=== PATIENT | female | born 1965 | race African-American/Black ===

== ENCOUNTER 2019-12-25 13:11 | Inpatient (IN) | payer MEDICAID ==
[~2019-12-25] VITALS: Ht 175.3 cm; Wt 93.1 kg
[2019-12-25] MEDS ORDERED: SODIUM CHLORIDE 0.9% 1,000 ML IVB ONE (13:21)
[2019-12-25] MEDS ORDERED: ONDANSETRON HCL 4 MG/2 ML VIAL IV ONE (13:30)
[2019-12-25] MEDS ORDERED: ASPirin 81 mg TAB PO ONE (13:30)
[2019-12-25] MEDS ORDERED: MORPHINE SULFATE 4 MG/ML SYR/VIAL IV ONE (13:30)
[2019-12-25 13:40] LABS: Basophils # (auto) 0.1 10 ^3/uL (0-0.2); Basophils % (auto) 1.6 % (0.0-2.0); Eosinophils # (auto) 0.2 10 ^3/uL (0-0.8); Eosinophils % (auto) 3.8 % (0.0-7.0); Hematocrit 47.7 % (36.0-46.0); Hemoglobin 15.3 g/dL (12.2-16.2); Lymphocytes # (auto) 2.3 10 ^3/uL (0.4-5.4); Lymphocytes % (auto) 43.4 % (10.0-50.0); Mean Corpuscular Hemoglobin 30.9 pg (28.0-32.0); Mean Corpuscular Hgb Conc. 32.1 g/dL (32.0-36.0); Mean Corpuscular Volume 96.1 fL (80.0-100.0); Monocytes # (auto) 0.4 10 ^3/uL (0-1.3); Monocytes % (auto) 8.5 % (0.0-12.0); Neutrophils # (auto) 2.3 10 ^3/uL (1.6-8.6); Neutrophils % (auto) 42.7 % (37.0-80.0); Nucleated Red Blood Cells % 0.1 %; Platelet Count (auto) 250 10^3/uL (140-450); Red Blood Cells 4.97 10^6/uL (4.0-5.20); White Blood Cell 5.3 10^3/uL (4.4-10.8)
[2019-12-25 13:56] LABS: Albumin 3.7 g/dL (3.4-5.0); Anion Gap 10 (5-15); Blood Urea Nitrogen 11 mg/dL (7-18); Calcium 8.6 mg/dL (8.5-10.1); Carbon Dioxide 24 mmol/L (21-32); Chloride 107 mmol/L (98-107); Glucose 116 mg/dL (74-106); Magnesium 2.4 mg/dL (1.6-2.6); Potassium 4.2 mmol/L (3.5-5.1); Sodium 141 mmol/L (136-145)
[2019-12-25 14:01] LABS: Alanine Aminotransferase 49 U/L (13-56); Alkaline Phosphatase 89 U/L (45-117); Aspartate Aminotransferase 26 U/L (15-37); Bilirubin, Total 0.5 mg/dL (0.2-1.0); GFR African American 65 mL/min; GFR Non-African American 54 mL/min; Total Protein 7.7 g/dL (6.4-8.2)
[2019-12-25 14:06] LABS: BUN/Creatinine Ratio 9.9
[2019-12-25] MEDS ORDERED: DOCUSATE SOD 100 MG CAP PO PRN (14:30)
[2019-12-25] MEDS ORDERED: ONDANSETRON HCL 4 MG/2 ML VIAL IV PRN (14:30)
[2019-12-25] MEDS ORDERED: NITROGLYCERIN 0.4 MG SL TAB SL PRN ×2 (14:30→15:00)
[2019-12-25] MEDS ORDERED: MORPHINE SULF INJ 2 MG/ML SYRINGE 1ML IV PRN (14:30)
[2019-12-25] MEDS ORDERED: LORazepam 0.5 MG TAB PO PRN (14:30)
[2019-12-25] MEDS ORDERED: ALUM & MAG HYDROX-SIMETH LIQ(MAALOX) 30 ML PO PRN (14:30)
[2019-12-25] MEDS ORDERED: MORPHINE SULFATE 4 MG/ML SYR/VIAL IV PRN (14:30)
[2019-12-25] MEDS ORDERED: FAMOTIDINE 20 MG TAB PO ONE (15:00)
[2019-12-25] MEDS: SODIUM CHLORIDE 0.9% 1,000 ML IV SCH (15:01)
[2019-12-25] MEDS: HYDROcodone-ACET 5/325MG TAB PO PRN (15:27)
[2019-12-25 16:00] VITALS: BP 125/63
--- NOTE | 2019-12-25 16:00 | NUR ---
PATIENT ARRIVED IN ROOM FROM ER. PATIENT ORIENTED TO ROOM, CALL LIGHT BEDSIDE, 2X SIDE RAILS UP, BED IN LOCKED AND LOWEST POSITION. CURRENT VS 97.9, 72, 18, 100%, 125/63. PATIENT COMPLAINT OF CHEST PAIN 5/10, BUT IS REFUSING ADDITIONAL PAIN MEDICATION AT THIS TIME. PATIENT POSITIONED FOR COMFORT. WILL CONTINUE TO MONITOR Q1H AND PRN.
--- NOTE | 2019-12-25 16:49 | NUR ---
PAIN ASSESSMENT PATIENT COMPLAINT OF PAIN 5/10 IN CHEST. PATIENT DOES NOT WANT FURTHER PAIN MEDICATION AT THIS TIME. WILL CONTINUE TO MONITOR
[2019-12-25 17:00] VITALS: BP 125/63
--- NOTE | 2019-12-25 19:30 | NUR ---
Opening Shift Note Assumed care of patient, awake and alert. No S/S of distress/SOB or pain. Instructed on POC and to call for assist PRN, will continue to monitor for changes Q1hr and PRN. Chest pain to right chest and right shoulder, pressure like pain, offered pain medication refused at this time. Encouraged to call if pain medication needed. Call casey with in reach.
[2019-12-25] MEDS: FAMOTIDINE 20 MG TAB PO SCH (20:26)
[2019-12-25] MEDS: ATORVASTATIN 20 MG TAB PO SCH (20:26)
[2019-12-25] MEDS: METOPROLOL TARTRATE 25 MG TAB PO SCH (20:26)
[2019-12-25 21:00] VITALS: BP 121/80
--- NOTE | 2019-12-25 22:18 | NUR ---
Pain medication given Morphine 2mg IV for right shoulder pain of 8/10, patient said pain level down to 3/10. Encouraged patient to call if pain gets worse. Patient has 02 at 2L via IN.
[2019-12-26] MEDS: SODIUM CHLORIDE 0.9% 1,000 ML IV SCH ×2 (01:13→19:04)
--- NOTE | 2019-12-26 04:15 | NUR ---
EKG DONE, IN CHART. PATIENT DENIES CHEST PAIN AT THIS TIME.
[2019-12-26 05:00] VITALS: BP 117/83
[2019-12-26 06:09] LABS: Hematocrit 42.8 % (36.0-46.0); Mean Corpuscular Hemoglobin 31.4 pg (28.0-32.0); Mean Corpuscular Hgb Conc. 32.7 g/dL (32.0-36.0); Mean Corpuscular Volume 96.1 fL (80.0-100.0); Platelet Count (auto) 214 10^3/uL (140-450); Red Blood Cells 4.45 10^6/uL (4.0-5.20); Red Cell Distribution Width 14.8 % (11.8-14.3); White Blood Cell 4.6 10^3/uL (4.4-10.8)
[2019-12-26 06:20] LABS: Basophils % (manual) 0 (0.0-2.0); Blast Cells 0; Metamyelocytes % 0; Myelocytes % 0; Promyelocytes % 0; Reactive Lymphocytes 0
[2019-12-26 06:21] LABS: INR 1.07 (0.9-1.15); Partial Thromboplastin Time 33.3 sec (23.64-32.05)
[2019-12-26 06:45] LABS: Albumin 3.2 g/dL (3.4-5.0); BUN/Creatinine Ratio 12.6; Bilirubin, Total 0.7 mg/dL (0.2-1.0); Calcium 8.3 mg/dL (8.5-10.1); Magnesium 2.3 mg/dL (1.6-2.6); Phosphorus 3.9 mg/dL (2.5-4.90); Total Protein 6.4 g/dL (6.4-8.2)
[2019-12-26 06:59] LABS: Band Neutrophils % (manual) 1; Eosinophils % (manual) 5 (0-7); Lymphocytes % (manual) 62 (10.0-50.0); Monocytes % (manual) 8 (0-12)
[2019-12-26 08:00] VITALS: BP 116/63
[2019-12-26] MEDS: METOPROLOL TARTRATE 25 MG TAB PO SCH ×2 (09:28→22:00)
[2019-12-26] MEDS: cefTRIAXone 1GM/50ML D5W 50 ML IV SCH (09:28)
[2019-12-26] MEDS: DOCUSATE SOD 100 MG CAP PO SCH (09:28)
[2019-12-26] MEDS: ASPirin 81 mg TAB PO SCH (09:28)
[2019-12-26] MEDS: ENOXAPARIN SOD 40 MG/0.4 ML SYRINGE SC SCH (09:29)
[2019-12-26] MEDS: FAMOTIDINE 20 MG TAB PO SCH ×2 (09:29→22:00)
[2019-12-26 09:44] VITALS: BP 116/63
[2019-12-26 13:00] VITALS: BP 116/64
[2019-12-26] MEDS ORDERED: TROLAMINE SALICYLATE 10% TOP CREAM TOP ONE (14:15)
--- NOTE | 2019-12-26 14:15 | NUR ---
ASPERCREME MEDICATION NOT GIVEN. PATIENT DID NOT WANT THE MEDICATION AT THIS TIME. MEDICATION HELD FOR LATER. INFORMED NURSE
--- NOTE | 2019-12-26 14:15 | NUR ---
DR PRICE ON UNIT
[2019-12-26 16:18] LABS: Urine Bacteria NONE SEEN /hpf (None Seen); Urine Blood Negative /uL (Negative); Urine Specific Gravity 1.011 (1.001-1.035); Urine WBC 2 /hpf (0 - 5)
[2019-12-26 16:30] VITALS: BP 147/68
[2019-12-26 16:30] LABS: Amphetamine Screen, Urine NEGATIVE (NEGATIVE); Barbiturate Scree,Urine NEGATIVE (NEGATIVE); Benzodiazephine Screen, Urine NEGATIVE (NEGATIVE); Cannabinoid Screen, Urine NEGATIVE (NEGATIVE); Cocaine Screen, Urine NEGATIVE (NEGATIVE); Opiate Scree,Urine NEGATIVE (NEGATIVE); Phencyclidine Screen, Urine NEGATIVE (NEGATIVE)
--- NOTE | 2019-12-26 20:45 | NUR ---
PAIN ASSESSMENT The patient complained of 8/10 left sided that began after the patient walked around in the hallway for a few minutes. The patient denies any shortness of breath. Patient's vitals: Temp 97.9 F, BP 121/75, HR 76, RR 17, SPO2 98%. The patient was given Nitro x1. The patient complained of a headache afterwards. Patient educated on the effects of Nitro. And EKG was obtained and shown to hospitalist Rafy. EKG has been placed in chart. No new orders obtained. Patient currently has 0/10 chest pain. Will continue to monitor the patient's status.
[2019-12-26 22:00] VITALS: BP 121/75
[2019-12-26] MEDS: TROLAMINE SALICYLATE 10% TOP CREAM TOP SCH (22:00)
[2019-12-26] MEDS: ATORVASTATIN 20 MG TAB PO SCH (22:00)
[2019-12-26] MEDS: HYDROcodone-ACET 5/325MG TAB PO PRN (22:25)
[2019-12-27 05:00] VITALS: BP 104/66
--- NOTE | 2019-12-27 06:25 | NUR ---
IV ATTEMPT Attempted an IV in the patient's right arm. Upon attempt, patient immediately withdrew her arm and stated that it was too painful. Unable to place IV due to patient's anxiety about needles.
[2019-12-27 06:53] LABS: Hematocrit 42.7 % (36.0-46.0); Hemoglobin 14.2 g/dL (12.2-16.2); Mean Corpuscular Hemoglobin 31.7 pg (28.0-32.0); Mean Corpuscular Hgb Conc. 33.2 g/dL (32.0-36.0); Mean Corpuscular Volume 95.4 fL (80.0-100.0); Platelet Count (auto) 205 10^3/uL (140-450); Red Blood Cells 4.48 10^6/uL (4.0-5.20); Red Cell Distribution Width 14.7 % (11.8-14.3); White Blood Cell 4.4 10^3/uL (4.4-10.8)
[2019-12-27 06:59] LABS: Basophils % (manual) 0 (0.0-2.0); Blast Cells 0; Metamyelocytes % 0; Myelocytes % 0; Promyelocytes % 0; Reactive Lymphocytes 0
--- NOTE | 2019-12-27 07:00 | NUR ---
Opening Shift Note Received report from the patient. Awake lying in bed. Discussed the plan of care with the patient. Patient shows no signs of distress at this time. Bed in lowest position, side rails up x2, and call light is within reach. Will continue to monitor.
[2019-12-27 07:07] LABS: Anion Gap 4 (5-15); Blood Urea Nitrogen 9 mg/dL (7-18); Calcium 8.4 mg/dL (8.5-10.1); Carbon Dioxide 27 mmol/L (21-32); Chloride 110 mmol/L (98-107); Glucose 98 mg/dL (74-106); Potassium 4.1 mmol/L (3.5-5.1); Sodium 141 mmol/L (136-145)
[2019-12-27 07:09] LABS: BUN/Creatinine Ratio 10.6; GFR African American 89 mL/min; GFR Non-African American 74 mL/min
[2019-12-27 07:34] LABS: Band Neutrophils % (manual) 1; Eosinophils % (manual) 4 (0-7); Lymphocytes % (manual) 65 (10.0-50.0); Monocytes % (manual) 9 (0-12)
[2019-12-27 08:00] VITALS: BP 118/70
[2019-12-27] MEDS ORDERED: ADENOSINE 85 MG in GIVE UN-DILUTED 0 ML IV STA (08:15)
[2019-12-27] MEDS: DOCUSATE SOD 100 MG CAP PO SCH (10:00)
[2019-12-27] MEDS: ENOXAPARIN SOD 40 MG/0.4 ML SYRINGE SC SCH (10:00)
[2019-12-27] MEDS: cefTRIAXone 1GM/50ML D5W 50 ML IV SCH (10:31)
[2019-12-27 12:00] VITALS: BP 144/71
[2019-12-27] MEDS: ASPirin 81 mg TAB PO SCH (13:19)
[2019-12-27] MEDS: FAMOTIDINE 20 MG TAB PO SCH ×2 (13:20→21:38)
[2019-12-27] MEDS: METOPROLOL TARTRATE 25 MG TAB PO SCH ×2 (13:20→21:39)
[2019-12-27] MEDS: TROLAMINE SALICYLATE 10% TOP CREAM TOP SCH ×2 (13:20→21:38)
[2019-12-27 17:00] VITALS: BP 116/60
[2019-12-27] MEDS ORDERED: diphenhdrAMINE HCL 50 MG/1 ML VL IV ONE (17:00)
[2019-12-27] MEDS: SODIUM CHLORIDE 0.9% 1,000 ML IV SCH (18:51)
--- NOTE | 2019-12-27 19:25 | NUR ---
Opening Shift Note Assumed care of patient, awake and alert x4. No S/S of distress/SOB, complaints of pain 8/0-10, pain management options discussed. Call light is within reach, side rails up x2, fall precautions are in place. Instructed on POC and to call for assist PRN, will continue to monitor for changes Q1hr and PRN.
--- NOTE | 2019-12-27 19:30 | NUR ---
IV removal from [facility] IV DC'd with clean sterile technique, catheter fully intact. Pressure dressing applied to site. Patient tolerated well.
[2019-12-27] MEDS: HYDROcodone-ACET 5/325MG TAB PO PRN (19:40)
--- NOTE | 2019-12-27 19:40 | NUR ---
PAIN Patient is complaining of pain 8/0-10 to the right shoulder and chest. Morphine is available for severe pain, patient is requesting Wilmar 5 stating it works just fine for her. Wilmar 5 given as ordered for pain, will reassess.
--- NOTE | 2019-12-27 20:40 | NUR ---
PAIN REASSESSMENT Patient states pain is 0/0-10, she is comfortable and the Dodson 5 works great. Call light is within reach, instructed to call for assistance.
[2019-12-27] MEDS: ATORVASTATIN 20 MG TAB PO SCH (21:38)
[2019-12-27 22:12] VITALS: BP 140/92
[2019-12-28] MEDS ORDERED: SODIUM CHLORIDE 0.9% 1,000 ML IV SCH (00:01)
[2019-12-28 05:00] VITALS: BP 128/74
[2019-12-28 05:21] LABS: Hematocrit 43.2 % (36.0-46.0); Hemoglobin 14.2 g/dL (12.2-16.2); Mean Corpuscular Hemoglobin 31.3 pg (28.0-32.0); Mean Corpuscular Volume 95.1 fL (80.0-100.0); Platelet Count (auto) 211 10^3/uL (140-450); Red Blood Cells 4.54 10^6/uL (4.0-5.20); Red Cell Distribution Width 14.6 % (11.8-14.3); White Blood Cell 3.8 10^3/uL (4.4-10.8)
[2019-12-28 05:36] LABS: BUN/Creatinine Ratio 14.8; Calcium 8.5 mg/dL (8.5-10.1); Potassium 3.9 mmol/L (3.5-5.1)
[2019-12-28 05:42] LABS: Band Neutrophils % (manual) 0; Basophils % (manual) 0 (0.0-2.0); Blast Cells 0; Metamyelocytes % 0; Myelocytes % 0; Promyelocytes % 0
[2019-12-28 06:57] LABS: Eosinophils % (manual) 4 (0-7); Lymphocytes % (manual) 52 (10.0-50.0); Monocytes % (manual) 11 (0-12); Reactive Lymphocytes 2
--- NOTE | 2019-12-28 07:30 | NUR ---
Patient in bed, awake, oriented x4. No acute distress noted. Patient on NPO.
[2019-12-28 08:00] VITALS: BP 139/93
[2019-12-28] MEDS: cefTRIAXone 1GM/50ML D5W 50 ML IV SCH (08:00)
[2019-12-28] MEDS: SODIUM CHLORIDE 0.9% 1,000 ML IV SCH (08:04)
[2019-12-28] MEDS: FAMOTIDINE 20 MG TAB PO SCH ×2 (09:22→22:22)
[2019-12-28] MEDS: ASPirin 81 mg TAB PO SCH (09:23)
[2019-12-28] MEDS: METOPROLOL TARTRATE 25 MG TAB PO SCH ×2 (09:23→22:23)
[2019-12-28] MEDS: DOCUSATE SOD 100 MG CAP PO SCH (09:25)
[2019-12-28] MEDS: ENOXAPARIN SOD 40 MG/0.4 ML SYRINGE SC SCH (09:26)
[2019-12-28] MEDS: TROLAMINE SALICYLATE 10% TOP CREAM TOP SCH ×2 (09:27→22:22)
--- NOTE | 2019-12-28 09:30 | NUR ---
Patient said that her salesperson jewelry is her niece Ryan ([phone]).
--- NOTE | 2019-12-28 10:20 | NUR ---
Transferred patient via bed to [facility] for left heart cath. Patient awake, oriented x4, no acute distress noted. IV line intact and patent. Patient able to ambulate to the bathroom at [facility]. Patient back to bed, steady gait noted.
--- NOTE | 2019-12-28 12:00 | NUR ---
Patient still at [facility] at this time.
[2019-12-28] MEDS ORDERED: MIDAZOLAM HCL 1MG/1ML-2 ML VIAL ONE (12:09)
[2019-12-28] MEDS ORDERED: fentaNYL CITRATE 100 MCG/2 ML VL ONE (12:09)
[2019-12-28] MEDS ORDERED: VERAPAMIL 2.5MG/ML INJ 2ML VIAL IV ONE (12:15)
[2019-12-28] MEDS ORDERED: HEPARIN SODIUM (PORCINE) 5000 UNITS/ML 1ML VIAL ONE ×2 (12:24→12:27)
[2019-12-28] MEDS ORDERED: diphenhdrAMINE HCL 50 MG/1 ML VL ONE (12:29)
[2019-12-28] MEDS ORDERED: IOHEXOL 350 MG/ML 100ML IJ ONE (12:29)
[2019-12-28] MEDS ORDERED: LIDOCAINE 2%HCL (LOCAL ANESTH.) INJ 20ML MDV ONE (12:29)
--- NOTE | 2019-12-28 14:08 | NUR ---
Patient back to room, lethargic, right wrist on Vasc Band, 2 ml of air removed by Block Sorter GRACE Buckley. On O2 at 2 lpm via nasal cannula. On bed alarm.
--- NOTE | 2019-12-28 14:23 | NUR ---
About 2 ml of air removed from the Vasc Band on the right wrist.
--- NOTE | 2019-12-28 14:55 | NUR ---
About 2 ml of air removed from the Vasc Band on the right wrist. No bleeding noted. Assisted the patient to get up to go to the bathroom. Patient walked back to bed, slow but steady gait noted.
--- NOTE | 2019-12-28 15:10 | NUR ---
About 2 ml of air removed from the Vasc Band. No bleeding noted.
--- NOTE | 2019-12-28 15:25 | NUR ---
About 2 ml of air removed from the Vasc Band on right wrist. No bleeding noted.
--- NOTE | 2019-12-28 16:30 | NUR ---
Removed the Vasc Band on the right wrist. No bleeding noted. Gauze and Tegaderm dressing applied.
[2019-12-28 16:47] VITALS: BP 115/71
--- NOTE | 2019-12-28 19:35 | NUR ---
Opening Shift Note Assumed care of patient, awake and alert x4. No S/S of distress/SOB or pain. Right wrist access from left heart cath today is C/D/I, the area is soft. Instructed on POC and to call for assist PRN. Call light is within reach, side rails up x2, bed is in the lowest position, brakes are locked. Will continue to monitor for changes Q1hr and PRN.
[2019-12-28 21:55] VITALS: BP 135/75
[2019-12-28] MEDS: ATORVASTATIN 20 MG TAB PO SCH (22:23)
[2019-12-29] MEDS: SODIUM CHLORIDE 0.9% 1,000 ML IV SCH (01:48)
[2019-12-29 05:33] LABS: Basophils # (auto) 0 10 ^3/uL (0-0.2); Basophils % (auto) 1.1 % (0.0-2.0); Eosinophils # (auto) 0.2 10 ^3/uL (0-0.8); Eosinophils % (auto) 3.4 % (0.0-7.0); Hematocrit 45.5 % (36.0-46.0); Hemoglobin 15.1 g/dL (12.2-16.2); Lymphocytes # (auto) 2.3 10 ^3/uL (0.4-5.4); Lymphocytes % (auto) 50.3 % (10.0-50.0); Mean Corpuscular Hemoglobin 31.9 pg (28.0-32.0); Mean Corpuscular Hgb Conc. 33.2 g/dL (32.0-36.0); Monocytes # (auto) 0.4 10 ^3/uL (0-1.3); Monocytes % (auto) 8.4 % (0.0-12.0); Neutrophils # (auto) 1.7 10 ^3/uL (1.6-8.6); Neutrophils % (auto) 36.8 % (37.0-80.0); Nucleated Red Blood Cells % 0.1 %; Platelet Count (auto) 219 10^3/uL (140-450); Red Blood Cells 4.74 10^6/uL (4.0-5.20); Red Cell Distribution Width 14.8 % (11.8-14.3); White Blood Cell 4.6 10^3/uL (4.4-10.8)
[2019-12-29 05:48] LABS: Potassium 3.8 mmol/L (3.5-5.1)
[2019-12-29 05:51] VITALS: BP 113/75
[2019-12-29 05:52] LABS: BUN/Creatinine Ratio 14.8
[2019-12-29 08:00] VITALS: BP 125/78
--- NOTE | 2019-12-29 08:00 | NUR ---
Opening Shift Note Assumed care of patient, awake and alert x4. No S/S of distress/SOB or pain. S/P left heart cath , right wrist access clean dry and intact, soft, slightly tender to touch. No c/o pain. Instructed on POC and to call for assistance PRN. Call light is within reach, side rails up x2, bed is in the lowest position, brakes are locked. Will continue to monitor for changes Q1hr and PRN.
[2019-12-29] MEDS: FAMOTIDINE 20 MG TAB PO SCH (09:03)
[2019-12-29] MEDS: cefTRIAXone 1GM/50ML D5W 50 ML IV SCH (09:03)
[2019-12-29] MEDS: ASPirin 81 mg TAB PO SCH (09:03)
[2019-12-29] MEDS: DOCUSATE SOD 100 MG CAP PO SCH (09:04)
[2019-12-29] MEDS: ENOXAPARIN SOD 40 MG/0.4 ML SYRINGE SC SCH (09:05)
[2019-12-29 12:00] VITALS: BP 146/74
[2019-12-29 15:36] VITALS: BP 146/74
--- NOTE | 2019-12-29 17:20 | NUR ---
Discharge instructions given as ordered. Encourage to follow up with PMD as instructed. All questions and concerns addressed. Patient verbalized understanding. Medication reconciliation form completed and copy given to patient. IV removed with catheter intact, pressure dressing applied. Telemetry unit returned to ICU. Patient taken to vehicle via wheelchair with all personal belongings, accompanied by this nurse. No distress noted at time of departure.
== END 2019-12-29 17:20 | disposition home or self-care (01) | DRG 192 ==
LOC: ER 13:11 → TELE 13:12 → TELE-WESTW 15:58
PROVIDERS: ADMIT Hospitalist; ATTEND Internal Medicine
PROC: 4A023N7 Measurement of Cardiac Sampling and Pressure, Left Heart, Percutaneous Approach (ICD-10-PCS; principal; 2019-12-28)
PROC: B2111ZZ Fluoroscopy of Multiple Coronary Arteries using Low Osmolar Contrast (ICD-10-PCS; 2019-12-28)
PROC: B2151ZZ Fluoroscopy of Left Heart using Low Osmolar Contrast (ICD-10-PCS; 2019-12-28)
DX: M94.0 Chondrocostal junction syndrome [Tietze] (principal); N17.0 Acute kidney failure with tubular necrosis; I13.10 Hypertensive heart and chronic kidney disease without heart failure, with stage 1 through stage 4 chronic kidney disease, or unspecified chronic kidney disease; E66.9 Obesity, unspecified; N10 Acute pyelonephritis; N18.9 Chronic kidney disease, unspecified; J44.9 Chronic obstructive pulmonary disease, unspecified; R00.2 Palpitations; I99.8 Other disorder of circulatory system; F17.210 Nicotine dependence, cigarettes, uncomplicated; Z80.1 Family history of malignant neoplasm of trachea, bronchus and lung; Z80.3 Family history of malignant neoplasm of breast; Z82.49 Family history of ischemic heart disease and other diseases of the circulatory system; Z87.440 Personal history of urinary (tract) infections; Z83.3 Family history of diabetes mellitus; Z90.710 Acquired absence of both cervix and uterus; Z68.30 Body mass index [BMI] 30.0-30.9, adult
CPT/HCPCS: 36415; 71045; 78452; 80048; 80053; 80061; 80307; 81001; 83036; 83735; 83880; 84100; 84443; 84484; 85007; 85025; 85027; 85610; 85730; 87086; 93005; 93017; 93306; 93458; 96361; 96374; 96375; 99152; G0378; J0153; J0696; J2250; J2405

== ENCOUNTER 2020-04-25 21:23 | Emergency (ER) | payer MEDICAID ==
[~2020-04-25] VITALS: Ht 175.3 cm; Wt 99.8 kg
[2020-04-25 22:51] LABS: Basophils # (auto) 0.1 10 ^3/uL (0-0.2); Basophils % (auto) 1.2 % (0.0-2.0); Eosinophils # (auto) 0.2 10 ^3/uL (0-0.8); Eosinophils % (auto) 3.5 % (0.0-7.0); Hematocrit 48.9 % (36.0-46.0); Hemoglobin 15.9 g/dL (12.2-16.2); Lymphocytes # (auto) 3.1 10 ^3/uL (0.4-5.4); Lymphocytes % (auto) 47.7 % (10.0-50.0); Mean Corpuscular Hemoglobin 31.4 pg (28.0-32.0); Mean Corpuscular Hgb Conc. 32.6 g/dL (32.0-36.0); Mean Corpuscular Volume 96.3 fL (80.0-100.0); Monocytes # (auto) 0.6 10 ^3/uL (0-1.3); Monocytes % (auto) 9.2 % (0.0-12.0); Neutrophils # (auto) 2.5 10 ^3/uL (1.6-8.6); Neutrophils % (auto) 38.4 % (37.0-80.0); Nucleated Red Blood Cells % 0.1 %; Platelet Count (auto) 280 10^3/uL (140-450); Red Blood Cells 5.08 10^6/uL (4.0-5.20); Red Cell Distribution Width 14.9 % (11.8-14.3); White Blood Cell 6.6 10^3/uL (4.4-10.8)
[2020-04-25 22:57] LABS: Urine Bacteria FEW /hpf (None Seen); Urine Blood 3+ /uL (Negative); Urine Mucus FEW (None Seen); Urine Specific Gravity 1.023 (1.001-1.035); Urine WBC 134 /hpf (0 - 5)
[2020-04-25 23:09] LABS: Calcium 9.5 mg/dL (8.5-10.1); Potassium 3.7 mmol/L (3.5-5.1)
[2020-04-25 23:26] LABS: Albumin 4.4 g/dL (3.4-5.0); Bilirubin, Total 0.7 mg/dL (0.2-1.0); Total Protein 8.2 g/dL (6.4-8.2)
[2020-04-26 04:30] VITALS: BP 145/94
[2020-04-26] MEDS ORDERED: MORPHINE SULFATE 4 MG/ML SYR/VIAL IV ONE (05:00)
[2020-04-26] MEDS ORDERED: ONDANSETRON HCL 4 MG/2 ML VIAL IV ONE (05:00)
[2020-04-26] MEDS ORDERED: SODIUM CHLORIDE 0.9% 1,000 ML IV ONE (05:00)
== END 2020-04-26 05:10 | disposition left against medical advice (07) ==
LOC: ER 21:25
DX: R10.9 Unspecified abdominal pain (principal); Z53.21 Procedure and treatment not carried out due to patient leaving prior to being seen by health care provider
CPT/HCPCS: 36415; 74176; 80053; 81001; 85025

== ENCOUNTER 2021-03-12 22:31 | Emergency (ER) | payer MEDICAID ==
[~2021-03-12] VITALS: Ht 172.7 cm; Wt 95.3 kg
[2021-03-12 22:31] VITALS: BP 149/95
[2021-03-12 23:00] LABS: Basophils # (auto) 0.1 10 ^3/uL (0-0.2); Basophils % (auto) 1.4 % (0.0-2.0); Eosinophils # (auto) 0.2 10 ^3/uL (0-0.8); Eosinophils % (auto) 3.8 % (0.0-7.0); Hematocrit 40.9 % (36.0-46.0); Hemoglobin 13.5 g/dL (12.2-16.2); Lymphocytes # (auto) 2.7 10 ^3/uL (0.4-5.4); Lymphocytes % (auto) 48.9 % (10.0-50.0); Mean Corpuscular Hemoglobin 30.6 pg (28.0-32.0); Mean Corpuscular Hgb Conc. 33.1 g/dL (32.0-36.0); Mean Corpuscular Volume 92.6 fL (80.0-100.0); Monocytes # (auto) 0.4 10 ^3/uL (0-1.3); Monocytes % (auto) 7.5 % (0.0-12.0); Neutrophils # (auto) 2.1 10 ^3/uL (1.6-8.6); Neutrophils % (auto) 38.4 % (37.0-80.0); Nucleated Red Blood Cells % 0.1 %; Red Blood Cells 4.42 10^6/uL (4.0-5.20); Red Cell Distribution Width 14.2 % (11.8-14.3); White Blood Cell 5.5 10^3/uL (4.4-10.8)
[2021-03-12 23:17] LABS: Alanine Aminotransferase 28 U/L (13-56); Albumin 3.8 g/dL (3.4-5.0); Anion Gap 8 (5-15); Aspartate Aminotransferase 16 U/L (15-37); BUN/Creatinine Ratio 18.1; Blood Urea Nitrogen 17 mg/dL (7-18); Calcium 8.7 mg/dL (8.5-10.1); Carbon Dioxide 27 mmol/L (21-32); Chloride 105 mmol/L (98-107); GFR African American 79 mL/min; GFR Non-African American 65 mL/min; Glucose 124 mg/dL (74-106); Potassium 3.3 mmol/L (3.5-5.1); Sodium 140 mmol/L (136-145)
[2021-03-12 23:19] LABS: INR 0.96 (0.9-1.15); Partial Thromboplastin Time 30.6 sec (23.0-31.2)
[2021-03-12 23:22] LABS: Alkaline Phosphatase 73 U/L (45-117); Bilirubin, Total 0.3 mg/dL (0.2-1.0); Total Protein 7.2 g/dL (6.4-8.2)
== END 2021-03-13 02:13 | disposition left against medical advice (07) ==
LOC: ER 22:37
DX: R07.89 Other chest pain (principal); R06.02 Shortness of breath; R53.1 Weakness; Z53.21 Procedure and treatment not carried out due to patient leaving prior to being seen by health care provider
CPT/HCPCS: 36415; 71045; 80053; 83880; 84443; 84484; 85025; 85610; 85730; 93005